=== PATIENT | male | born 1940 | race Caucasian/White ===

== ENCOUNTER → 2016-08-14 | Outpatient (CLI) | payer OTHER | LOC: BHFA 10:15 | PROVIDERS: ATTEND Internal Medicine Interventional Cardiology | DX: I25.10 Atherosclerotic heart disease of native coronary artery without angina pectoris (principal); I48.91 Unspecified atrial fibrillation; I42.9 Cardiomyopathy, unspecified ==

== ENCOUNTER → 2016-10-30 | Day surgery (SDC) | payer OTHER ==
[~2016-10-30] MED LIST: APIXABAN 5 MG TAB ONE; APIXABAN 5 MG TAB PO ONE; ATROPINE SULFATE 1 MG/10 ML SYR ONE; BENZOCAINE UNIT DOSE SPRAY HURRICAINE MM ONE; MIDAZOLAM 2 MG/2 ML VIAL IVP ONE; NS 500 ML IV ONE; PROPOFOL 200 MG/20 ML VIAL IVP ONE; fentaNYL 100 MCG/2 ML INJ IVP ONE
--- NOTE | 2016-10-30 11:21 | CPEKG ---
Heart Rate: 100 RR Interval: 600 QRSD Interval: 130 QT Interval: 416 QTC Interval: 537 QRS Branson: 109 T Wave Branson: -72 EKG Severity - ABNORMAL ECG - EKG Impression: ATRIAL FIBRILLATION EKG Impression: V PACED BEAT. EKG Impression: NONSPECIFIC INTRAVENTRICULAR CONDUCTION DELAY EKG Impression: BORDERLINE ST DEPRESSION, DIFFUSE LEADS EKG Impression: COMPARED WITH 04/29/2016 AT 9:04 A.M., ATRIAL FIBRILLATION PRESENT. V PACING EKG Impression: PRESENT Electronically Signed By: Loli Anderson 30-Oct-2016 16:35:53
[2016-10-30 11:51] LABS: INR 1.23 (0.83-1.16); PROTIME(PATIENT) 15.5 SEC (12.0-15.0)
[2016-10-30 11:52] LABS: APTT 33.7 SEC (23.0-38.0)
[2016-10-30 11:59] LABS: ANION GAP 11 mEq/L (8-16); CALCIUM 9.7 mg/dL (8.5-10.4); CARBON DIOXIDE 25 mEq/l (22-31); CHLORIDE 99 mEq/L (97-110); CREATININE 1.3 mg/dL (0.7-1.3); GLOMERULAR FILTRATION RATE 53; GLUCOSE 96 mg/dL (70-100); POTASSIUM 4.9 mEq/L (3.5-5.2); SODIUM 135 mEq/L (134-144)
--- NOTE | 2016-10-30 13:02 | PDTEE1 ---
CELIA Cardioversion Procedure Procedure: Electrical Cardioversion, Transesophageal Echo Indications: Atrial Fibrillation Anticoagulation: Eliquis Procedural Details: Pads were placed in anterior-posterior position. CELIA probe was advanced and standard images obtained. There is no evidence of left atrial or left atrial appendage thrombus. Synchronized cardioversion attempt #1: 200J Conclusions: Successful CELIA Cardioversion Patient Problems: Problems Problem Status Onset Atrial fibrillation and flutter Acute
--- NOTE | 2016-10-30 13:58 | CPEKG ---
Heart Rate: 77 RR Interval: 779 P-R Interval: 248 QRSD Interval: 244 QT Interval: 540 QTC Interval: 612 P Huson: 0 QRS Huson: -71 T Wave Huson: 118 EKG Severity - ABNORMAL ECG - EKG Impression: VENTRICULAR-PACED COMPLEXES EKG Impression: COMPARED WITH 10/30/2016 11:19 A.M., MORE VENTRICULAR PACING IS SEEN. Electronically Signed By: Loli Anderson 30-Oct-2016 16:35:08
== END | disposition home or self-care (01) ==
LOC: FCATH 10:52
PROVIDERS: ATTEND Internal Medicine Cardiovascular Disease
PROC: 5A2204Z Restoration of Cardiac Rhythm, Single (ICD-10-PCS; principal; 2016-10-30)
PROC: B246ZZ4 Ultrasonography of Right and Left Heart, Transesophageal (ICD-10-PCS; principal; 2016-10-30)
DX: I48.91 Unspecified atrial fibrillation (principal); Z95.0 Presence of cardiac pacemaker
CPT/HCPCS: J0461; J2704

== ENCOUNTER → 2016-11-03 | Outpatient (CLI) | payer OTHER | LOC: BHFA 13:15 | PROVIDERS: ATTEND Internal Medicine Cardiovascular Disease | DX: I48.91 Unspecified atrial fibrillation (principal); I42.9 Cardiomyopathy, unspecified ==

== ENCOUNTER → 2016-11-03 | Outpatient (CLI) | payer OTHER ==
[~2016-11-03] MED LIST changes: -APIXABAN 5 MG TAB ONE; -APIXABAN 5 MG TAB PO ONE; -ATROPINE SULFATE 1 MG/10 ML SYR ONE; -BENZOCAINE UNIT DOSE SPRAY HURRICAINE MM ONE; +IOPAMIDOL (ISOVUE 370) 100 ML BTL IV ONE; -MIDAZOLAM 2 MG/2 ML VIAL IVP ONE; -NS 500 ML IV ONE; -PROPOFOL 200 MG/20 ML VIAL IVP ONE; -fentaNYL 100 MCG/2 ML INJ IVP ONE
== END ==
LOC: FIMAGING 15:16
PROVIDERS: ATTEND Nurse Practitioner Adult Health
DX: J90 Pleural effusion, not elsewhere classified (principal); I51.7 Cardiomegaly; I48.91 Unspecified atrial fibrillation
CPT/HCPCS: 71275; Q9967

== ENCOUNTER → 2016-11-10 | Outpatient (CLI) | payer OTHER | LOC: FIMAGING 12:40 | PROVIDERS: ATTEND Internal Medicine Interventional Cardiology | DX: I50.9 Heart failure, unspecified (principal); I42.9 Cardiomyopathy, unspecified; R91.8 Other nonspecific abnormal finding of lung field ==

== ENCOUNTER 2016-11-13 15:16 | Inpatient (IN) | payer OTHER ==
[2016-11-13] MEDS: FUROSEMIDE 40 MG/4 ML VIAL IVP SCH (18:43)
[2016-11-13 19:10] LABS: % IMMATURE GRANULYOCYTES 0.3 % (0.0-1.1); ABSOLUTE IMMATURE GRANULOCYTES 0.02 10^3/uL (0.00-0.10); ADD DIFF? NO; ADD MORPH? NO; ADD SCAN? NO; ATYPICAL LYMPHOCYTE FLAG 30 (0-99); FRAGMENT RBC FLAG 0 (0-99); HEMATOCRIT 44.5 % (40.0-51.0); HEMOGLOBIN 14.6 g/dL (13.7-17.5); LEFT SHIFT FLG 0 (0-99); LIPEMIA HEMOLYSIS FLAG 80 (0-99); MEAN CELL HEMOGLOBIN 28.5 pg (27.9-34.1); MEAN CELL HEMOGLOBIN CONCENTR. 32.8 g/dL (32.4-36.7); MEAN CELL VOLUME 86.9 fL (81.5-99.8); MEAN PLATELET VOLUME 11.1 fL (8.7-11.7); PLATELET CLUMPS FLAG 0 (0-99); PLATELET COUNT 189 10^3/uL (150-400); RED BLOOD CELL COUNT 5.12 10^6/uL (4.40-6.38); RED CELL DISTRIBUTION WIDTH 16.1 % (11.5-15.2)
[2016-11-13 19:26] LABS: ALANINE AMINOTRANSFERASE 34 IU/L (21-72); ALBUMIN 4.2 g/dL (3.5-5.0); ALKALINE PHOSPHATASE 95 IU/L (38-126); ANION GAP 10 mEq/L (8-16); ASPARTATE AMINOTRANSFERASE 33 IU/L (17-59); BILIRUBIN,TOTAL 1.4 mg/dL (0.1-1.4); CALCIUM 9.6 mg/dL (8.5-10.4); CARBON DIOXIDE 23 mEq/l (22-31); CHLORIDE 100 mEq/L (97-110); CREATININE 1.2 mg/dL (0.7-1.3); GLOMERULAR FILTRATION RATE 59; GLUCOSE 80 mg/dL (70-100); MAGNESIUM 2.1 mg/dL (1.6-2.3); POTASSIUM 4.7 mEq/L (3.5-5.2); SODIUM 133 mEq/L (134-144); TOTAL PROTEIN 7.1 g/dL (6.3-8.2)
[2016-11-13 19:33] LABS: TROPONIN I 0.017 ng/mL (0-0.034)
[2016-11-13 19:39] LABS: COLOR YELLOW; LEUKOCYTE ESTERASE,URINE NEGATIVE (NEGATIVE); NITRITE,URINE NEGATIVE (NEGATIVE)
[2016-11-13] MEDS ORDERED: ACETAMINOPHEN 325 MG TAB PO PRN (19:51)
[2016-11-13] MEDS ORDERED: AZITHROMYCIN 250 MG TAB PO SCH (20:00)
[2016-11-13] MEDS ORDERED: AZITHROMYCIN 250 MG PO SCH (20:00)
[2016-11-13] MEDS: APIXABAN 2.5 MG TAB PO SCH (20:24)
[2016-11-13] MEDS: AZITHROMYCIN 250 MG TAB PO SCH (20:28)
[2016-11-14 04:12] LABS: INR 1.35 (0.83-1.16); PROTIME(PATIENT) 16.7 SEC (12.0-15.0)
[2016-11-14 04:47] LABS: ALANINE AMINOTRANSFERASE 33 IU/L (21-72); ALBUMIN 4.1 g/dL (3.5-5.0); ALKALINE PHOSPHATASE 84 IU/L (38-126); ANION GAP 12 mEq/L (8-16); ASPARTATE AMINOTRANSFERASE 30 IU/L (17-59); BILIRUBIN,TOTAL 1.8 mg/dL (0.1-1.4); CALCIUM 9.4 mg/dL (8.5-10.4); CARBON DIOXIDE 29 mEq/l (22-31); CHLORIDE 99 mEq/L (97-110); CREATININE 1.3 mg/dL (0.7-1.3); GLOMERULAR FILTRATION RATE 53; GLUCOSE 83 mg/dL (70-100); POTASSIUM 4.2 mEq/L (3.5-5.2); SODIUM 140 mEq/L (134-144); TOTAL PROTEIN 6.9 g/dL (6.3-8.2)
[2016-11-14] MEDS: LEVOTHYROXINE 125 MCG TAB PO SCH (06:51)
[2016-11-14] MEDS: FUROSEMIDE 40 MG/4 ML VIAL IVP SCH ×5 (06:51→23:41)
[2016-11-14] MEDS ORDERED: CARVEDILOL 3.125 MG TAB PO SCH (08:00)
[2016-11-14] MEDS: SPIRONOLACTONE 25 MG TAB PO SCH (08:27)
[2016-11-14] MEDS: CHOLECALCIFEROL VIT D3 1,000 UNITS TAB PO SCH (08:27)
[2016-11-14] MEDS: APIXABAN 2.5 MG TAB PO SCH ×2 (08:27→20:52)
[2016-11-14] MEDS: ASCORBIC ACID 500 MG TAB PO SCH (08:27)
[2016-11-14] MEDS: MULTIVITAMINS 1 EACH TAB PO SCH (08:28)
--- NOTE | 2016-11-14 13:08 | SOAPPROG ---
[facility] Progress Note Assessment/Plan: Assessment: 1. Acute systolic heart failure. 2. Coronary disease status post bypass grafting. 3. Hypertension. 4. Atrial fibrillation/paroxysmal with permanent pacemaker on high risk medication amiodarone. Impression: Day 1. Status post admission for aggressive diuresis. He has done remarkably well with IV Lasix and is feeling significantly improved. Awaiting repeat assessment of LV function. Plan for heart failure consultation tomorrow to optimize medical therapy. Considerations for upgrade to biventricular pacing. Plan: Continue IV diuresis. Electrolytes in the morning. Heart failure consultation. Up titration of Coreg. 11/14/16 13:05 Subjective: Feeling significantly better. 10 lb weight loss overnight. Reduced PND and orthopnea. No chest pain. Objective: Vital Signs Temp Pulse Resp BP Pulse Ox 36.6 C 61 16 142/74 H 93 11/14/16 11:37 11/14/16 11:37 11/14/16 11:37 11/14/16 11:37 11/14/16 11:37 Laboratory Results 11/13/16 18:40 11/14/16 03:52 11/13/16 11/14/16 11/15/16 05:59 05:59 05:59 Intake Total 550 350 Output Total 4650 1750 Balance -4100 -1400 PT 16.7 SEC (12.0-15.0) H 11/14/16 03:52 INR 1.35 (0.83-1.16) H 11/14/16 03:52 Physical Exam - Physical Exam General Appearance: no apparent distress EENT: PERRL/EOMI Neck: non-tender, full range of motion Respiratory: rales Cardiac/Chest: regular rate, rhythm, edema, No JVD Abdomen: normal bowel sounds, non-tender Back: Normal inspection Extremities: pedal edema ICD10 Worksheet Patient Problems: Problems Problem Status Onset Atrial fibrillation and flutter Acute Review of Systems - Review of Systems Constitutional: denies: chills, fever Respiratory: cough. denies: shortness of breath Cardiac: no symptoms reported Gastrointestinal/Abdominal: no symptoms reported Genitourinary: no symptoms
[2016-11-14] MEDS: CARVEDILOL 6.25 MG TAB PO SCH (18:40)
[2016-11-14] MEDS: AZITHROMYCIN 250 MG TAB PO SCH (18:42)
[2016-11-15] VITALS: O2SAT 93
[2016-11-15] MEDS: LEVOTHYROXINE 125 MCG TAB PO SCH ×2 (04:39→09:15)
[2016-11-15] MEDS: FUROSEMIDE 40 MG/4 ML VIAL IVP SCH (04:39)
[2016-11-15 04:55] LABS: ALANINE AMINOTRANSFERASE 27 IU/L (21-72); ALBUMIN 4.3 g/dL (3.5-5.0); ALKALINE PHOSPHATASE 110 IU/L (38-126); ANION GAP 14 mEq/L (8-16); ASPARTATE AMINOTRANSFERASE 37 IU/L (17-59); BILIRUBIN,TOTAL 1.6 mg/dL (0.1-1.4); CALCIUM 9.3 mg/dL (8.5-10.4); CARBON DIOXIDE 27 mEq/l (22-31); CHLORIDE 94 mEq/L (97-110); CREATININE 1.4 mg/dL (0.7-1.3); GLOMERULAR FILTRATION RATE 49; GLUCOSE 80 mg/dL (70-100); POTASSIUM 4.4 mEq/L (3.5-5.2); SODIUM 135 mEq/L (134-144); TOTAL PROTEIN 7.4 g/dL (6.3-8.2)
[2016-11-15] MEDS ORDERED: MAGNESIUM SULF 1 GM/DEXTROSE 100 ML IV ONE ×2 (07:11→09:00)
--- NOTE | 2016-11-15 07:16 | SOAPPROG ---
ART Progress Note Assessment/Plan: Assessment: 1. Acute on chronic systolic heart failure. 2. Coronary disease status post bypass grafting. 3. Hypertension. 4. Atrial fibrillation/paroxysmal with permanent pacemaker on high risk medication amiodarone. Impression: Day 1. Status post admission for aggressive diuresis. He has done remarkably well with IV Lasix and is feeling significantly improved. Awaiting repeat assessment of LV function. Plan for heart failure consultation tomorrow to optimize medical therapy. Considerations for upgrade to biventricular pacing. Plan: Continue IV diuresis. Electrolytes in the morning. Heart failure consultation. Up titration of Coreg. 11/14/16 13:05 Impression: Day 2. status post admission for acute on chronic systolic heart failure. Echocardiogram reveals ef of 30% with preserved wall thickness and clear septal dyssynchrony, likely post CABG. He is euvolemic on exam. He is tolerating increased Coreg. He is maintaining sinus rhythm. Plan: Education ( salt use at home!) Change to oral diuretics. CHF consultation with Dr. Stark to increase medications. In particular would like to begin afterload reduction. Cozar 50 mg today Continue anti-coagulation. Follow K and creatinine 11/15/16 07:12 Subjective: Rough night with severe leg cramps and difficulty sleeping. No PND or orthopnea. Cough improved. No chest pain. No fever or chills. Objective: Medications Generic Name Dose Route Start Last Admin Trade Name Freq PRN Reason Stop Dose Admin Apixaban 2.5 mg 11/13/16 21:00 11/14/16 20:52 Eliquis PO 05/12/17 20:59 2.5 mg BID FATOUMATA Carvedilol 6.25 mg 11/14/16 18:00 11/14/16 18:40 Coreg PO 05/13/17 17:59 6.25 mg BIDMEAL FATOUMATA Furosemide 40 mg 11/15/16 09:00 Lasix PO 05/14/17 08:59 BID@0900,1500 [facility] Levothyroxine Sodium 125 mcg 11/14/16 06:00 11/15/16 04:39 Synthroid PO 05/13/17 05:59 Not Given DAILY06 FATOUMATA Magnesium Sulfate/Dextrose 100 mls @ 100 mls/hr 11/15/16 07:11 Magnesium Sulf 1 Gm (Premix) IV 11/15/16 08:10 ONCE ONE Spironolactone 12.5 mg 11/14/16 09:00 11/14/16 08:27 Aldactone PO 05/13/17 08:59 12.5 mg DAILY FATOUMATA Vital Signs Temp Pulse Resp BP Pulse Ox 36.3 C 68 17 134/80 H 93 11/15/16 03:53 11/15/16 03:53 11/15/16 03:53 11/15/16 03:53 11/15/16 03:53 Laboratory Results 11/13/16 18:40 11/15/16 03:44 11/14/16 11/15/16 11/16/16 05:59 05:59 05:59 Intake Total 550 1050 Output Total 4650 4050 Balance -4100 -3000 PT 16.7 SEC (12.0-15.0) H 11/14/16 03:52 INR 1.35 (0.83-1.16) H 11/14/16 03:52 Physical Exam - Physical Exam General Appearance: alert, no apparent distress EENT: PERRL/EOMI Neck: non-tender, full range of motion Respiratory: lungs clear Cardiac/Chest: regular rate, rhythm, No JVD Abdomen: normal bowel sounds, non-tender, soft Extremities: normal range of motion, non-tender, pedal edema, No calf tenderness Neuro/Psych: no motor/sensory deficits, alert, normal mood/affect ICD10 Worksheet Patient Problems: Problems Problem Status Onset Chronic Disease Mgmt/Transitional Care Acute Atrial fibrillation and flutter Acute Review of Systems - Review of Systems Constitutional: denies: chills, fever EENTM: no symptoms reported Respiratory: cough. denies: orthopnea, wheezing Cardiac: no symptoms reported Gastrointestinal/Abdominal: no symptoms reported Genitourinary: frequency Musculoskelatal: muscle pain Skin: no symptoms Neurological: anxiety Hematologic/Lymphatic: no symptoms reported Immunologic/allergic: no symptoms reported
[2016-11-15 07:52] VITALS: PULSE 63; RESP 16; TEMP 97.7
[2016-11-15] MEDS ORDERED: FUROSEMIDE 40 MG TAB PO SCH (09:00)
[2016-11-15] MEDS ORDERED: LOSARTAN POTASSIUM 50 MG TAB PO SCH (09:00)
[2016-11-15] MEDS: CARVEDILOL 6.25 MG TAB PO SCH (09:09)
[2016-11-15] MEDS: MULTIVITAMINS 1 EACH TAB PO SCH (09:09)
[2016-11-15] MEDS: CHOLECALCIFEROL VIT D3 1,000 UNITS TAB PO SCH (09:09)
[2016-11-15] MEDS: ASCORBIC ACID 500 MG TAB PO SCH (09:10)
[2016-11-15] MEDS: SPIRONOLACTONE 25 MG TAB PO SCH (09:11)
[2016-11-15] MEDS: APIXABAN 2.5 MG TAB PO SCH (09:11)
[2016-11-15 09:13] VITALS: BP 140/80
--- NOTE | 2016-11-15 11:20 | SOAPPROG ---
ART Progress Note Assessment/Plan: Assessment: CHF consultation performed and dictated. 76 y/o man with CAD s/p CABG x 6V in 09/19, paf with RVR, acute on chronic ischemic systolic CHF with LVEF 25% who has diuresed 18lbs this hospitalization and now appears euvolemic with no pulmonary edema or angina. REC: 1)change lasix to 60mg PO qam upon discharge home today. 2)continue Coreg, Losartan and Aldactone at current doses. 3)clarify with Rehan whether he wants to start an antiarrhythmic like PO Amiodarone upon discharge as pt has been having lots of PAF with RVR although in NSR now. 4)fluid restrict 64oz/day, low NACL 1800 mmols/day and okay for mild-moderate exercise upon discharge. 5)labs in five days (CBC, BMP and BNP level). 6)f/u CHF-[facility] in one week. Will probably change from Losartan to Entresto at that time. Thanks for allowing me to participate in this nice man's care. Questions answered to pt and his . 11/15/16 11:16 Objective: Vital Signs Temp Pulse Resp BP Pulse Ox 36.5 C 63 16 140/80 H 93 11/15/16 07:43 11/15/16 09:09 11/15/16 07:43 11/15/16 09:09 11/15/16 07:43 Laboratory Results 11/13/16 18:40 11/15/16 03:44 11/14/16 11/15/16 11/16/16 05:59 05:59 05:59 Intake Total 550 1050 Output Total 4650 4050 Balance -4100 -3000 PT 16.7 SEC (12.0-15.0) H 11/14/16 03:52 INR 1.35 (0.83-1.16) H 11/14/16 03:52 ICD10 Worksheet Patient Problems: Problems Problem Status Onset Chronic Disease Mgmt/Transitional Care Acute Atrial fibrillation and flutter Acute
--- NOTE | 2016-11-15 12:45 | GCON ---
[f rep st] CONSULTATION CONGESTIVE HEART FAILURE CONSULT DATE OF CONSULTATION: 11/15/2016 REFERRING PHYSICIAN: Romel Graves MD REASON FOR CONSULTATION: Evaluate gentleman with acute on chronic severe ischemic cardiomyopathy, a nd recommend future CHF management. I was asked by Dr. Romel Graves to consult for the above reasons. HISTORY OF PRESENT ILLNESS: The patient is a 76-year-old gentleman with the following cardiac histo ry: He first developed angina heart failure symptoms in 2010. He was found to have multivessel cor onary artery disease and underwent a CABG x6 vessels in September 2010. He has also had atrial flutter status post flutter ablation and frequent paroxysmal atrial fibrillation with RVR. He has an AICD. His last Cardiolite stress test in May 2014 demonstrated an LVEF of 39% with no ischemia. An echo in September 2014 demonstrated an LVEF of 43%. An echo done 2 weeks ago in October 2016 demonstrated a n LVEF of 25% with an LVEDD of 5.5 cm and mild left ventricular hypertrophy with moderate RV dysfunc tion. He has moderate aortic insufficiency with mild to moderate mitral and tricuspid insufficiency , with an estimated PA pressure of 64 mmHg. He was admitted several days ago with class 4 heart joanna lure symptoms and edema, not getting better with increasing his p.o. Lasix at home. During the hospitalization, he has diuresed 15 pounds and feels much better. He can currently walk about 50-100 feet before dyspnea. He denies chest pain, orthopnea, AICD shocks or palpitations. PAST MEDICAL HISTORY: Coronary artery disease as per HPI, chronic ischemic cardiomyopathy, atrial f ibrillation and A flutter, previous right femoral pseudoaneurysm after a heart catheterization and h ypertension. PAST SURGICAL HISTORY: AICD, CABG x6 vessels in September 2010, cataract surgery, detached retina and c omplete thyroidectomy in childhood. CURRENT MEDICATIONS: Eliquis 2.5 mg twice daily, Coreg 6.25 mg twice daily, Lasix 40 mg IV q.6 hour s, losartan 50 mg per day, Aldactone 12.5 mg per day. The rest of the medications are noncardiac. ALLERGIES: Codeine and Percocet. SOCIAL HISTORY: The patient is . He denies tobacco or alcohol use. FAMILY HISTORY: Unremarkable for premature coronary artery disease or heart failure. REVIEW OF SYSTEMS: The patient reports no recent fevers, chills, cough or hemoptysis. He has no GI bleed symptoms, such as hematemesis, melena, or bright red blood per rectum. The rest of the 10-po int review of systems is negative. PHYSICAL EXAMINATION: VITAL SIGNS: Afebrile. Pulse 60 and regular, blood pressure 140/80, respira tions 20. Weight 81 kg. GENERAL: A normal appearing gentleman in no acute distress, without chest pain or using accessory respiratory muscles. EYES: Pupils equal and reactive to light. ENT: Ora l mucosa with no cyanosis. NECK: Jugular venous pressure to 7 cm. Carotid pulse 2+ bilaterally wi th no obvious bruits. No thyromegaly noted. No nuchal rigidity. LUNGS: Clear to auscultation debi aterally, without rales, rhonchi, or wheezing. HEART: Enlarged PMI. Regular rate and rhythm with a 2/6 nonradiating systolic murmur and positive S3 gallop. ABDOMEN: Soft and nontender. No hepato splenomegaly. No ascites. No bruit heard over his abdominal aorta. EXTREMITIES: 2+ peripheral pu lses, including femoral and pedal pulses. No edema noted. MUSCULOSKELETAL: No scoliosis. NEURO: Normal affect and mood. SKIN: No bleeding or cyanosis. LABS: Sodium 135, potassium 4.4, chloride 94, bicarb 27, BUN 24, creatinine 1.4, glucose 80. TSH 1 .8. NT proBNP level 2750. INR 1.35. Hematocrit 45. IMPRESSION: A 76-year-old gentleman with coronary artery disease status post coronary artery bypass grafting in 2010 with resolving acute on chronic ischemic systolic heart failure, with a left ventr icular ejection fraction of 25% and Class 2 [employer] symptoms. He appears euvolem ic today. I am hopeful that his left ventricular function will improve as he finally is willing to take congestive heart failure medicines long-term, he reports. RECOMMENDATIONS: 1. Would change IV Lasix to Lasix 60 mg p.o. daily upon discharge. 2. Would discuss with Dr. Bhakta of the EP service about putting him on amiodarone upon discharge to p revent recurrent atrial fibrillation with RVR. 3. The rest of the medications without change. 4. Fluid restrict 64 ounces per day and low-salt diet 1800 millimoles per day. Okay to do mild-to- moderate exercise upon discharge. 5. Will get labs in 5 days, including a CBC, BNP level, and BMP panel. 6. I will see him in 1 week in my CHF Clinic, and probably at that time switch him from losartan to Entresto, and adjust the diuretics as needed. /[id number]/MODL
--- NOTE | 2016-11-15 14:20 | GDS ---
[f rep st] DISCHARGE SUMMARY DISCHARGE DIAGNOSES: 1. Acute systolic congestive heart failure with NYHA functional class 3-4 symptoms, status post IV diuresis in this admission. 2. Ischemic cardiomyopathy with last measured ejection fraction of 25% based on echo from October 2016. 3. Atrial flutter, status post atrial flutter ablation in 2015. 4. Recent bout of atrial fibrillation with rapid ventricular rates, status post cardioversion on . 5. ICD placement. 6. Severe pulmonary hypertension with right ventricular systolic pressure of 64. 7. Hypertension. 8. Previous right pseudoaneurysm repair in 2016. PROCEDURES: chest x-ray with borderline compensated CHF and COPD without pneumonia. CONSULTATIONS: Dr. Stark of heart failure management. HISTORY OF PRESENT ILLNESS: The patient is a 76-year-old male with a history of multivessel CABG in 2010, atrial flutter status post atrial flutter ablation, ICD placement, recent atrial fibrillation status post cardioversion. He was admitted with volume overload directly from Dr. Graves's clini c. He proceeded to IV diuresis and has diuresed nicely by the time of discharge. He has lost 15 po unds total. His medical management has been optimized with the addition of losartan in addition to his Coreg and spironolactone. His outpatient dose of Lasix has been increased to 60 daily. HOSPITAL COURSE: 1. Volume overload. He has responded well to IV Lasix. He has been receiving education from the t ransitional care program. He is discharged with a fluid restriction of 64 ounces daily and a low-sa lt diet of 1800 mg per day. He has been started on losartan in addition to Coreg that has been up t itrated. He will be continued on spironolactone, and his Lasix dose is bumped up to 60 mg daily. H e will require BMP, BNP, and CBC in 1 week's time prior to his next office appointment. 2. Ischemic cardiomyopathy. His last nuclear stress test was done in May 2014 and showed no i schemia. 3. Paroxysmal AFib. He is currently in sinus rhythm and A paced rhythm. He is on Eliquis for anti coagulation. He has also been on amiodarone and that dose will be decreased to 100 mg p.o. daily. RESULTS PENDING: None. DIET: Cardiac, low salt, low fat, and fluid restricted to 64 ounces daily and sodium restricted to 1800 mg daily. ACTIVITY: Light to moderate activity recommended. DISCHARGE MEDICATIONS: Please see medication reconciliation for complete details. He is being disc harged on Tylenol as needed. He may finish up a Z-Eliel. His spironolactone dose is 12.5 p.o. daily. He will be continued on a multivitamin, levothyroxine, vitamin D3, and vitamin C. He can also con tinue apixaban 2.5 p.o. b.i.d. He has been started on losartan 50 mg p.o. daily. His Lasix dose wa s increased to 60 mg p.o. daily. His carvedilol dose was increased to 6.25 p.o. b.i.d. His amiodar one dose was decreased to 100 mg p.o. daily. PHYSICAL EXAM: VITAL SIGNS: On the day of discharge, blood pressure of 140/80, heart rate 63, resp irations 16, O2 saturation 93% on room air, temp of 97.7 degrees Fahrenheit. GENERAL: He is a plea ike male in no apparent distress. EYES: PERRL. HEART: Regular rate and rhythm with distant hear t sounds. No rubs, gallops, or murmurs. LUNGS: Without crackles. ABDOMEN: Soft. SKIN: Warm an d dry. LABORATORY DATA: CBC with WBC 7.34, hemoglobin 14.6, hematocrit 44.5, platelet count of 189. BMP w ith sodium 135, potassium 4.4, chloride 94, CO2 27, BUN 24, creatinine 1.4, glucose of 80. NT-proBN P on 11/13/2016 was 2750. TSH is 1.84. FOLLOWUP INSTRUCTIONS: 1. Follow up labs in 5 days with a BMP, CBC, and BNP. 2. Follow up with transitional care. 3. Follow up with Dr. Stark as scheduled in 1 week's time. Please note that greater than 30 minutes was spent on discharge and coordination of care. /[id number]/MODL
--- NOTE | 2016-11-15 16:47 | ECHO ---
[id number] + + [address] : : [place] [address] : : [phone] + + Adult Echocardiographic Report + -------+ :Name: GUS CATALAN HStudy Date: 11/14/2016 08:56 AM : : Hospital Admission Number: [id number] Locati on: 216: :: 1940 Gender: Male Height: 72 in : :Age: 76 yrs Race: WH Weight: 182 lb : :Reason For Study: Eval LV Fx : : BSA: 2.0 meter s2 : :History: Worsening CHF, Pacemaker : + -------+ MMode/2D Measurements \T\ Calculations IVSd: 1.4 cm LVIDd: 6.3 cm FS: 18.8 % Ao root diam: 3.4 cm LVPWd: 1.4 cm LVIDs: 5.1 cm EDV(Teich): 203.0 ml ACS: 1.9 cm ESV(Teich): 125.7 ml LA dimension: 4.7 cm EF(Teich): 38.1 % Normal Measurement Values: + + :LVIDd (3.5-5.7cm) IVSd (0.6-1.1cm) LVPWd (0.6-1.1cm) Aortic Root (2.0-3.7cm)Left Atrium (1.5-4.0cm): :LV Vol(d) (76-115ml) LV Vol(s) (29-48ml) Ejec Fraction (50-65%)PV Evens (0.6- 1.2m/s) TV Evens (0.4-1.0m/s) : :MV E Evens (0.8-1.0m/s)MV A Evens (0.3-1.0m/s)LVOT Evens (0.7-1.2m/s) Asc Ao Evens ( 0.9-1.8m/s) : + + Doppler Measurements \T\ Calculations MV E max evens: Ao V2 max: AI max evens: LV V1 max: 60.7 cm/sec 115.4 cm/sec 350.2 cm/sec 53.8 cm/sec MV A max evens: Ao max PG: AI max P.1 mmHg LV V1 max P.1 cm/sec 5.3 mmHg AI dec slope: 1.2 mmHg MV E/A: 1.8 189.1 cm/sec2 AI P1/2t: 542.4 msec MR max evens: PA V2 max: PI end-d evens: TR max evens: 412.7 cm/sec 77.4 cm/sec 141.2 cm/sec 314.9 cm/sec MR max PG: PA max PG: TR max P.1 mmHg 2.4 mmHg 39.7 mmHg RAP systole: 5.0 mmHg RVSP(TR): 44.7 mmHg Left Ventricle The left ventricle is mildly dilated. There is mild concentric left ventricular hypertrophy. Ejection Fraction = 30%. There is Doppler evidence for diastolic dysfunction. Ectopy was noted during the exam, the anteroseptal wall became dykinetic during this rhythm. The left ventricular ejection fraction is calculated at 38.1 %. There is moderate to severe global hypokinesis of the left ventricle. Right Ventricle The right ventricle is mildly dilated. The right ventricular systolic function is mildly reduced. Atria The left atrium is moderate to severely dilated. The right atrium is moderately dilated. Mitral Valve There is mild mitral annular calcification. There is mild mitral regurgitation. Tricuspid Valve There is mild tricuspid regurgitation. Right ventricular systolic pressure is 45mmHg. There is Doppler evidence for mild pulmonary hypertension. Aortic Valve There is mild to moderate aortic valve calcification. The aortic valve is trileaflet. There is no aortic stenosis. Mild to moderate aortic regurgitation. Pulmonic Valve The pulmonic valve is not well visualized. Trace pulmonic valvular regurgitation. Great Vessels The aortic root is normal size. Pericardium/Pleural There is no pericardial effusion. Conclusion A complete two-dimensional transthoracic echocardiogram was performed (2D, M-mode, Doppler and color flow Doppler). (1) Left ventricular systolic ejection fraction was moderately suppressed (30%) - there is global hypokinesis as well as anteroseptal dyskinesis (2) Mild concentric left ventricular hypertrophy (3) Diastolic dysfunction was present (4) Mild reduction in right ventricular systolic function with concomitant dilation of the right ventricular chamber (5) Moderate to severe left atrial dilation with moderate right atrial dilation (6) Mild mitral regurgitation (7) Trileaflet aortic valve with mild to moderate sclerosis, no stenosis, but mild to moderate insufficiency (8) Mild tricuspid regurgitation - RVSP was estimated to be 45 mm Hg (9) Poor visualization of the pulmonic valve with physiologic insufficiency by doppler (10) In comparison to prior echocardiogram from 10-30-16, no significant changes have been noted. Final Reading Physician: Gay Ren signed on 11/15/2016 04:46 PM Ordering Physician: JOSE MARSH Performed By: Vinayak Zhang, MARK ANTHONYCS
[2016-11-16] MEDS ORDERED: FUROSEMIDE 40 MG TAB PO SCH (09:00)
== END 2016-11-15 13:58 | disposition home or self-care (01) | DRG 293 ==
LOC: F2W 16:54 → OBSVTOIN 16:54
PROVIDERS: ADMIT Internal Medicine Interventional Cardiology; ATTEND Internal Medicine Interventional Cardiology
DX: I11.0 Hypertensive heart disease with heart failure (principal); I50.23 Acute on chronic systolic (congestive) heart failure; I25.10 Atherosclerotic heart disease of native coronary artery without angina pectoris; Z95.1 Presence of aortocoronary bypass graft; I48.0 Paroxysmal atrial fibrillation; I27.2 Other secondary pulmonary hypertension; Z95.810 Presence of automatic (implantable) cardiac defibrillator
CPT/HCPCS: J1940; J3475

== ENCOUNTER → 2017-06-13 | Outpatient (CLI) | payer OTHER, BC | LOC: BHFA 09:15 | PROVIDERS: ATTEND Internal Medicine Cardiovascular Disease | DX: I42.9 Cardiomyopathy, unspecified (principal) ==

== ENCOUNTER → 2017-06-15 | Outpatient (CLI) | payer OTHER, BC | LOC: BHFA 11:30 | PROVIDERS: ATTEND Internal Medicine Interventional Cardiology | DX: I48.91 Unspecified atrial fibrillation (principal); I25.10 Atherosclerotic heart disease of native coronary artery without angina pectoris; I50.22 Chronic systolic (congestive) heart failure ==

== ENCOUNTER → 2017-10-18 | Outpatient (CLI) | payer OTHER, BC | LOC: FIMAGING 16:24 | PROVIDERS: ATTEND Orthopaedic Surgery | DX: M79.604 Pain in right leg (principal); R60.0 Localized edema ==

== ENCOUNTER → 2017-11-21 | Outpatient (CLI) | payer OTHER, BC | LOC: FIMAGING 13:11 | PROVIDERS: ATTEND Internal Medicine Cardiovascular Disease | DX: I51.7 Cardiomegaly (principal); I48.91 Unspecified atrial fibrillation; Z79.899 Other long term (current) drug therapy ==

== ENCOUNTER 2018-04-23 07:10 | Day surgery (SDC) | payer OTHER, BC ==
[2018-04-23] MEDS ORDERED: NS 500 ML IV ONE (07:20)
[2018-04-23] MEDS ORDERED: MIDAZOLAM 2 MG/2 ML VIAL IVP ONE (07:20)
[2018-04-23] MEDS ORDERED: fentaNYL 100 MCG/2 ML INJ IVP ONE (07:20)
[2018-04-23] MEDS ORDERED: BENZOCAINE UNIT DOSE SPRAY HURRICAINE MM ONE (07:20)
[2018-04-23] MEDS ORDERED: ATROPINE SULFATE 1 MG/10 ML SYR IVP ONE (07:20)
--- NOTE | 2018-04-23 08:00 | CPEKG ---
Test Reason : OPEN Blood Pressure : / mmHG Vent. Rate : 106 BPM Atrial Rate : 085 BPM P-R Int : 152 ms QRS Dur : 126 ms QT Int : 406 ms P-R-T Axes : 007 109 -59 degrees QTc Int : 540 ms Atrial fibrillation Consider left ventricular hypertrophy Abnormal T, consider ischemia, diffuse leads Prolonged QT interval Confirmed by Jamari Scruggs ([id number]) on 04/23/2018 8:00:19 AM Referred By: Confirmed By:Jamari Scruggs
[2018-04-23 08:07] LABS: INR 1.06 (0.83-1.16)
[2018-04-23] MEDS ORDERED: PROPOFOL 200 MG/20 ML VIAL ONE (08:24)
[2018-04-23] MEDS ORDERED: LIDOCAINE 2% 2 ML INJ ONE (08:24)
--- NOTE | 2018-04-23 08:28 | PDHPUP ---
History & Physical Update H&P update statement: This history and physical update is based on an assessment of the patient which was completed after admission or registration (within 24 hours), but prior to the surgery/procedure. H&P update: H&P reviewed & patient examined, no change in patient's condition since H&P completed
--- NOTE | 2018-04-23 08:29 | PDANEPAE ---
ANE History of Present Illness benny/cv ANE Past Medical History - Cardiovascular History Hx Hypertension: Yes Hx Arrhythmias: Yes Hx Chest Pain: Yes Hx Coronary Artery / Peripheral Vascular Disease: Yes Hx CHF / Valvular Disease: Yes Hx Palpitations: No - Pulmonary History Hx COPD: No Hx Asthma/Reactive Airway Disease: No Hx Recent Upper Respiratory Infection: No Hx Oxygen in Use at Home: No Hx Sleep Apnea: No - Neurologic History Hx Cerebrovascular Accident: No Hx Seizures: No Hx Dementia: No - Endocrine History Hx Diabetes: No Hypothyroid: No Hyperthyroid: No Obesity: no - Renal History Hx Renal Disorders: No - Liver History Hx Hepatic Disorders: No - Chronic Pain History Chronic Pain: No ANE Review of Systems Review of Systems: - Exercise capacity Exercise capacity: <4 METS ANE Patient History - Allergies Allergies/Adverse Reactions: oxycodone Allergy (Intermediate, Verified 04/23/18 07:52) - Home Medications Home Medications: AZITHROMYCIN [Z-PACK] 250 mg PO AD 11/13/16 [Last Taken 11/12/16 1 TAB] Acetaminophen [Tylenol 325mg (*)] 325 mg PO Q6 PRN 11/13/16 [Last Taken Unknown] Apixaban [Eliquis] 2.5 mg PO BID 11/13/16 [Last Taken 04/23/18] Ascorbic Acid [Vitamin C 500 mg (*)] 2,000 mg PO DAILY 11/13/16 [Last Taken 10/25] Cholecalciferol Vit D3 [Vitamin D3 (*)] 3,000 units PO DAILY 11/13/16 [Last Taken 11/13/16] Levothyroxine [Synthroid 125 mcg (*)] 125 mcg PO DAILY06 11/13/16 [Last Taken ] Multivitamins [Multivitamin (*)] 1 each PO DAILY 11/13/16 [Last Taken 11/13/16] Amiodarone HCl [Pacerone] 200 mg PO DAILY 04/23/18 [Last Taken 04/23/18] Aspirin 81mg (*) 81 mg PO DAILY 04/23/18 [Last Taken Unknown] Eplerenone 04/23/18 [Last Taken Unknown] Furosemide 04/23/18 [Last Taken Unknown] - NPO status NPO Status: no food or drink >8 hours - Anes Hx Anes Hx: no prior problems - Smoking Hx Smoking Status: Never smoked ANE Labs/Vital Signs - Labs Result Diagrams: 04/23/18 07:45 - Vital Signs Height: 182.88 cm Weight: 91.172 kg ANE Physical Exam - Airway Mallampati Score: Class 2 Mouth exam: normal dental/mouth exam - Pulmonary Pulmonary: no respiratory distress - Cardiovascular Cardiovascular: irregularly irregular - ASA Status ASA Status: III ANE Anesthesia Plan Anesthesia Plan: GA with mask, MAC
--- NOTE | 2018-04-23 08:49 | POSTANESTH ---
Post Anesthetic Evaluation Cardiovascular Status: Normal, Stable Respiratory Status: Normal, Stable Level of Consciousness/Mental Status: Can Participate in Eval Pain Control: Adequate, Prn Tx Ordered Nausea/Vomiting Control: Adequate, Prn Tx Ordered Complications Possibly Related to Anesthesia: None Noted
--- NOTE | 2018-04-23 09:14 | CPEKG ---
Test Reason : OPEN Blood Pressure : / mmHG Vent. Rate : 060 BPM Atrial Rate : 000 BPM P-R Int : 059 ms QRS Dur : 248 ms QT Int : 619 ms P-R-T Axes : 070 -68 109 degrees QTc Int : 619 ms Atrial-ventricular dual-paced complexes Confirmed by Jamari Scruggs ([id number]) on 04/23/2018 9:14:31 AM Referred By: Confirmed By:Jamari Scruggs
--- NOTE | 2018-04-23 10:12 | PDTEE1 ---
CELIA Cardioversion Procedure Procedure: electrical cardioversion, transesophageal echo Indications: atrial fibrillation Consent: signed and in chart Anticoagulation: eliquis Procedural Details: Pads were placed in anterior-posterior position. CELIA probe was advanced and standard images obtained. There is no evidence of left atrial or left atrial appendage thrombus. Synchronized cardioversion attempt #1: 200J Results: normal sinus rhythm Conclusions: successful CELIA cardioversion Patient Problems: Problems Problem Status Onset Chronic Disease Mgmt/Transitional Care Acute Atrial fibrillation and flutter Acute
== END 2018-04-23 09:55 | disposition home or self-care (01) ==
LOC: FCATH 07:10
PROVIDERS: ATTEND Internal Medicine Interventional Cardiology
DX: I48.91 Unspecified atrial fibrillation (principal); I50.22 Chronic systolic (congestive) heart failure; I25.10 Atherosclerotic heart disease of native coronary artery without angina pectoris; I42.9 Cardiomyopathy, unspecified; N18.9 Chronic kidney disease, unspecified; I13.0 Hypertensive heart and chronic kidney disease with heart failure and stage 1 through stage 4 chronic kidney disease, or unspecified chronic kidney disease; E78.5 Hyperlipidemia, unspecified; I27.20 Pulmonary hypertension, unspecified; Z95.0 Presence of cardiac pacemaker; Z95.1 Presence of aortocoronary bypass graft
CPT/HCPCS: J0461; J2704

== ENCOUNTER → 2018-12-03 | Outpatient (CLI) | payer OTHER, BC | LOC: FIMAGING 14:07 ==